=== PATIENT | male | born 1985 | race Caucasian/White ===

== ENCOUNTER 2022-02-04 15:43 | Emergency (ER) | payer OTHER, SELFPAY ==
[2022-02-04 15:48] VITALS: BP 136/87; PULSE 71; RESP 20; TEMP 36.2; O2SAT 99; BMI 26.5
--- NOTE | 2022-02-04 16:03 | CRLHL7_ITS ---
For Patients: As a result of the Century Cures Act, medical imaging exams and procedure reports are released immediately into your electronic medical record. You may view this report before your referring provider. If you have questions, please contact your health care provider. Indication: Dog bite Technique: A total of three views of the right hand were acquired. Comparison: None Findings: Bones: Alignment is normal. No fractures or bone lesions. Joint spaces: Unremarkable. Soft tissues: Unremarkable. Impression: Normal plain film examination of the right hand. Dictated by Jas Lombardi MD @ 02/04/2022 4:52:22 PM (Electronically Signed)
--- NOTE | 2022-02-04 16:58 | ED_ITS ---
HPI - General Adult General Chief complaint: Animal Bite Stated complaint: Dog bite on right hand Time Seen by Provider: 02/04/22 15:59 Source: patient Mode of arrival: ambulatory Limitations: no limitations History of Present Illness HPI narrative: 36-year-old male coming in today after a dog bite. 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 According to the dog owners the dog is fully vaccinated. He complains of some hand discomfort in no other injuries. His tetanus shot is up-to-date. Related Data Previous Rx's Medication Instructions Recorded amoxicillin 875 mg-potassium 1 tab PO BID 7 days #14 tabs 02/04/22 clavulanate 125 mg tablet Allergies Allergy/AdvReac Type Severity Reaction Status Date / Time No Known Drug Allergies Allergy Verified 02/04/22 15:51 Review of Systems Status of ROS: Reports: 6 or more systems reviewed and unremarkable except as noted in History and below PFSH PFS Social History Smoking Status: Never smoker Do you use any of these nicotine containing products: None Second hand tobacco smoke exposure: No How often do you have a drink containing alcohol: never AUDIT-C Alcohol total score: 0 Non-prescribed substance use: marijuana (any form) Exam Narrative: Exam Narrative: Well-nourished well-developed patient in no acute distress. Alert and oriented. Answers questions appropriately. Extremities: Patient has for small puncture wounds scattered on the hand. He has a small hematoma between the 3rd and 4th digits on the dorsal surface. No significant tenderness to palpation at the hand and wrist. Const: Vital Signs, click to edit/add: Vital Signs - 24 hr 02/04/22 15:48 Temperature 97.1 F L Pulse Rate [Pulse Oximeter] 71 Respiratory Rate 20 Blood Pressure [Ri ght Upper Arm] 136/87 Pulse Oximetry 99 Oxygen Delivery Me thod Room Air Course Course Hospital Course: Given the small hematoma noted we did go ahead and x-ray the hand which read by me, does not show any acute fractures. Wounds were cleaned in the ER. Vital Signs Vital signs: Initial Vital Signs Temperature 97.1 F L 02/04/22 15:48 Temperature Source Temporal Artery Scan 02/04/22 15:48 Pulse Rate 71 02/04/22 15:48 Pulse Rhythm 02/04/22 15:48 Respiratory Rate 20 02/04/22 15:48 Blood Pressure 136/87 02/04/22 15:48 Blood Pressure Mean 103 02/04/22 15:48 Blood Pressure Position Supine 02/04/22 15:48 Pulse Oximetry 99 02/04/22 15:48 Oxygen Delivery Method 02/04/22 15:48 Vital Signs Temperature 97.1 F L 02/04/22 15:48 Pulse Rate 71 02/04/22 15:48 Respiratory Rate 20 02/04/22 15:48 Blood Pressure 136/87 02/04/22 15:48 Pulse Oximetry 99 02/04/22 15:48 Oxygen Delivery Method 02/04/22 15:48 Temperature 97.1 F L 02/04/22 15:48 Pulse Rate 71 02/04/22 15:48 Respiratory Rate 20 02/04/22 15:48 Blood Pressure 136/87 02/04/22 15:48 Pulse Oximetry 99 02/04/22 15:48 Oxygen Delivery Method 02/04/22 15:48 Medical Decision Making MDM Narrative Medical decision making narrative: 36-year-old male status post dog bite with small puncture wounds that do not require any suturing. We will put the patient on Augmentin. Discussed continued wound hygiene and reasons to return for follow-up. Imaging Data X-ray hand: Attestation: I have reviewed the pertinent imaging results. Radiologist's impression: A total of three views of the right hand were acquired. Comparison: None Findings: Bones: Alignment is normal. No fractures or bone lesions. Joint spaces: Unremarkable. Soft tissues: Unremarkable. Impression: Normal plain film examination of the right hand. Discharge Plan Discharge Clinical Impression: Dog bite Patient Disposition: Home, Self-Care Condition: Stable Additional Instructions: Take all antibiotics as prescribed. Okay to use Tylenol or ibuprofen for discomfort. Follow-up with your primary care provider if you have increasing redness or swelling of the hand. Prescriptions: New amoxicillin-pot clavulanate 875-125 mg tablet 1 tab PO BID 7 Days Qty: 14 0RF Follow Up/Referrals: Provider,Not a Local [Primary Care Provider] - Stand Alone [facility]: [facility] Info Inst[facility]
--- NOTE | 2022-02-04 17:00 | ED.NURSE ---
[facility] contacted regarding dog bite.
== END 2022-02-04 17:31 | disposition home or self-care (01) ==
PROVIDERS: Emergency Provider Family Medicine
DX: S61.451A Open bite of right hand, initial encounter (principal); W54.0XXA Bitten by dog, initial encounter
CPT/HCPCS: 73130; 99283; 99284